=== PATIENT | male | born 1990 | race Two or more races ===

== ENCOUNTER 2021-03-11 18:55 | Emergency (ER) | payer SELFPAY ==
[~2021-03-11] VITALS: Ht 172.7 cm; Wt 99.8 kg
== END 2021-03-11 19:47 | disposition left against medical advice (07) ==
LOC: ER 18:55
DX: Z53.21 Procedure and treatment not carried out due to patient leaving prior to being seen by health care provider

== ENCOUNTER 2021-05-21 11:14 | Emergency (ER) | payer OTHER ==
[~2021-05-21] VITALS: Ht 172.7 cm; Wt 101.2 kg
[2021-05-21 11:30] VITALS: BP 154/85
[2021-05-21] MEDS ORDERED: BENZOCAINE (DENTAL) 20 % SPRAY 60ML MT ONE (13:30)
== END 2021-05-21 14:02 | disposition home or self-care (01) ==
LOC: ER 11:14
DX: K02.9 Dental caries, unspecified (principal); F17.210 Nicotine dependence, cigarettes, uncomplicated